=== PATIENT | male | born 1970 | race Caucasian/White ===

== ENCOUNTER 2016-09-05 16:29 | Emergency (ER) | payer SELFPAY ==
[2016-09-05 16:54] VITALS: BP 139/81
[2016-09-05] MEDS ORDERED: Ibuprofen TAB* 400 MG PO ONE (17:08)
--- NOTE | 2016-09-05 17:41 | RAD ---
Indication: 1.5 weeks medial LEFT knee pain. Osteoarthritis. Comparison: No relevant prior exams available on the [facility] [place] PACS for comparison. Technique: LEFT knee: AP, tunnel, lateral, sunrise views. Report: Normal articular alignment. Negative for fracture. At the cephalad margin of the [id number] conspicuous only on the lateral projection there is incompletely visualized medullary lesion with chondroid matrix type calcification. Minimal osteophytosis. Negative for significant joint space narrowing. Negative for joint effusion. Unremarkable soft tissue contours. IMPRESSION: 1. 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 2. Radiographs of the LEFT femur warranted for further assessment of the partially visualized osseous lesion noted on the lateral view of the knee.
--- NOTE | 2016-09-05 22:12 | RAD ---
Indication: LEFT knee pain with mechanical symptoms and clinical concern for internal derangement. Incidental chondroid matrix lesion partially visualized on the radiographs of the same date. Comparison: No relevant prior exams available on the [facility] PACS for comparison. Technique: AP and lateral views LEFT femur. Report: At the distal diaphysis of the femur a 1.5 cm AP by 1.6 cm transverse by 4.4 cm cephalocaudal medullary lesion with chondroid matrix type calcification is identified. Negative for endosteal scalloping or periosteal reaction. No additional focal osseous lesions evident. Unremarkable soft tissue contours. 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 In absence of previous exams to document stability with none available on the [facility] PACS serial radiographs warranted to document stability initially at 3 months time. If there is pain referrable to the distal diaphysis region of the femur further assessment with bone scan or contrast-enhanced MRI would be suggested. Results discussed with Dr. Power 09/05/2016 6:40 PM EDT Orthopedic referral planned.
--- NOTE | 2016-09-05 22:43 | UC ---
Chris Richard Rebecca, scribed for Angelo Power MD on 09/05/16 at 1711 . Lower Extremity/Ankle HPI - HPI Summary HPI Summary: Pt is a 45 y/o M who presents to ED c/o L knee pain. Sx have been present since winter s/p suspected "slipping" and have been intermittent since onset, worsening this weekend. Pain is in the L knee mostly on the medial and front surfaces with occasional radiation to the sciatic nerve in the back and down the LLE into the toes and is currently severe, ranked 8/10. Knee does not lock up or give out. Denies erythema, swelling or warmth. Sx aggravated by bending, going up stairs and pushing the clutch of his truck, alleviated sometimes by ice and heat, mostly unchanged by Tylenol. Negative trauma. No PSHx on the L knee. PMHx ligament injury in the L knee at age 12. No FHx rheumatoid arthritis. - History of Current Complaint Chief Complaint: UCLowerExtremity Stated Complaint: LEFT KNEE PAIN Hx Obtained From: Patient Onset/Duration: Lasting Weeks - Months, Still Present Severity Currently: Severe Pain Intensity: 8 Pain Scale Used: 0-10 Numeric Aggravating Factor(s): Other - Bending, walking up stairs, pushing the clutch fo a care Alleviating Factor(s): Ice - Sometimes, Other - Heat - sometimes - Allergies/Home Medications Allergies/Adverse Reactions: Allergies Allergy/AdvReac Type Severity Reaction Status Date / Time Bee Venom Allergy Swelling Verified 09/05/16 16:52 Aspirin AdvReac Vomiting Verified 09/05/16 16:52 Home Medications: Home Medications Acetaminophen [Acetaminophen Extra Stren] 1,000 mg PO Q6H PRN 09/05/16 [History Confirmed 09/05/16] PMH/Surg Hx/FS Hx/Imm Hx - Additional Past Medical History Additional PMH: Hx L knee ligament injury at age 12 Hx L thumb fracture Cardiovascular History: Other Other Cardiovascular History: Negative CAD - Surgical History Surgical History: None - Family History Known Family History: Positive: Other - No FHx RA - Social History Alcohol Use: Occasionally Substance Use Type: None Smoking Status (MU): Never Smoked Tobacco Type: Smokeless Tobacco Amount Used/How Often: 1 CAN/2 DAYS Length of Time of Smoking/Using Tobacco: 20+ YRS Review of Systems Constitutional: Negative Skin: Negative Eyes: Negative ENT: Negative Respiratory: Negative Cardiovascular: Negative Gastrointestinal: Negative Genitourinary: Negative Motor: Other - See Comments Neurovascular: Negative Musculoskeletal: Negative Neurological: Negative Psychological: Negative All Other Systems Reviewed And Are Negative: Yes - Comments Additional Review of Systems Comments: POSITIVE: Pain in the L knee mostly on the medial and front surfaces with occasional radiation to the sciatic nerve in the back and down the LLE into the toes. NEGATIVE: Knee giving out or locking up. Erythema, swelling or warmth. Physical Exam Triage Information Reviewed: Yes Vital Signs: Initial Vital Signs Temp 99 F 09/05/16 16:48 Pulse 98 09/05/16 16:48 Resp 14 09/05/16 16:48 BP 139/81 09/05/16 16:48 Pulse Ox 97 09/05/16 16:48 Vital Signs Reviewed: Yes - Additional Comments The patient is well-nourished in no acute distress and in no acute pain. The skin is warm and dry and skin color reflects adequate perfusion. There is no redness and is not swollen. HEENT: The head is normocephalic and atraumatic. The pupils are equal and reactive. The conjunctivae are clear and without drainage. Nares are patent and without drainage. Mouth reveals moist mucous membranes and the throat is without erythema and exudate. The external ears are intact. The ear canals are patent and without drainage. The tympanic membranes are intact. Neck is supple with full range of motion and non-tender. There are no carotid bruits. There is no neck vein distension. Respiratory: Chest is non-tender. Lungs are clear to auscultation and breath sounds are symmetrical and equal. Cardiovascular: Hear is regular rate and rhythm. There is no murmur or rub auscultated. There is no peripheral edema and pulses are symmetrical and equal. Musculoskeletal: There is good capillary refill. There is no peripheral edema or calf tenderness elicited. Tenderness on the R sciatica. Tenderness in the medial compartment of the R knee. Decreased flexion to less than 90 degrees, extension is decreased to less than 10 degrees. Tenderness over the medial collateral ligament. No tenderness over the anterior collateral ligament. No effusion. ACL and PCL intact. Positive Apolonia's click sign. Distal neurovascular intact. Neurological: Patient is alert and oriented to person, place and time. The patient has symmetrical motor strength in all four extremities. Cranial nerves are grossly intact. Deep tendon reflexes are symmetrical and equal in all four extremities. Psychiatric: The patient is slightly anxious. Diagnostics - Radiology Knee XR Radiology Interpretation Completed By: Radiologist - 1. 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 2. Radiographs of the LEFT femur warranted for further assessment of the partially visualized osseous lesion noted on the lateral view of the knee. Femur XR Radiology Interpretation Completed By: Radiologist - Noted incidental medullary lesion distal diaphysis of femur most likely represents a benign enchondroma. In absence of previous exams to document stability with none available [place] the [facility] [place] warranted to document stability initially at 3 months time. If there is pain referrable to the distal diaphysis region of the femur further assessment with bone scan or contrast-enhanced MRI would be suggested. Results discussed with Dr. Power 09/05/2016 6:40 PM EDT Orthopedic referral planned. Re-Evaluation - Re-Evaluation First Eval Re-Evaluation Time: 18:05 Change: Unchanged Comment: Discussed XR results with the pt. Second Eval Re-Evaluation Time: 18:56 Change: Unchanged Comment: Discussed femur XR results with the pt. Lower Extremity Course/Dx - Course Course Of Treatment: Pt is a 45 y/o M who presents to ED c/o acute on chronic L knee pain since winter, worsening this weekend. Pain is mostly on the medial and front surfaces with occasional radiation to the sciatic nerve in the back and down the LLE into the toes and is currently severe, ranked 8/10. Knee does not lock up or give out. Denies erythema, swelling or warmth. Sx aggravated by bending, going up stairs and pushing the clutch of his truck, alleviated sometimes by ice and heat. Negative trauma. No PSHx on the L knee. PMHx ligament injury in the L knee at age 12. Knee XR reveals "1. 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 2. Radiographs of the LEFT femur warranted for further assessment of the partially visualized osseous lesion noted on the lateral view of the knee." Femur XR reveals: "Noted incidental medullary lesion distal diaphysis of femur most likely. represents a benign enchondroma. In absence of previous exams to document stability with. none available [place] the [facility] [place]ographs warranted to document stability. initially at 3 months time. If there is pain referrable to the distal diaphysis region of. the femur further assessment with bone scan or contrast-enhanced MRI would be suggested. Results discussed with Dr. Power 09/05/2016 6:40 PM EDT Orthopedic referral planned." He will be D/C to home with Dx of internal derangement and Rx for [place] 5-325 and Motrin and a follow up with orthopedics. He understands and agrees. - Differential Dx/Diagnosis Differential Diagnosis/HQI/PQRI: Other - Internal Derangement; Medial miniscus tear vs. medial collateral injury vs. osteoarthritis Provider Diagnoses: Internal Derangement Discharge - Discharge Plan Condition: Stable Disposition: HOME Prescriptions: HYDROcodone/ACETAMIN 5-325 MG* [[place] 5-325 TAB*] 1 tab PO Q6H PRN #20 tab MDD 4 PRN Reason: pain Ibuprofen TAB* [Motrin TAB* 600 MG] 600 mg PO Q8H PRN #30 tab PRN Reason: Pain Patient Education Materials: Knee Immobilizer (ED), Meniscus Tear (ED) Referrals: Nura Todd MD [Medical Doctor] - Donny Reeves MD [Medical Doctor] - Additional Instructions: Get a repeat femur X-ray done in 3 months. The documentation as recorded by the Chris dominguez Rebecca accurately reflects the service I personally performed and the decisions made by , Angeol Power MD.
== END 2016-09-05 19:08 | disposition home or self-care (01) ==
LOC: UCCORT 16:29
DX: M23.92 Unspecified internal derangement of left knee (principal); Z88.6 Allergy status to analgesic agent; Z91.030 Bee allergy status; F17.220 Nicotine dependence, chewing tobacco, uncomplicated
CPT/HCPCS: 99203; A9270-GY; G0463